=== PATIENT | male | born 1975 | race Caucasian/White ===

== ENCOUNTER 2024-01-08 08:49 | Emergency (ER) | payer OTHER, SELFPAY ==
[2024-01-08 08:58] VITALS: BP 117/78
[2024-01-08] MEDS: TORADOL 15 MG IV (09:47)
[2024-01-08] MEDS: OMNIPAQUE 50 ML PO (09:51)
[2024-01-08 09:52] LABS: Urine Albumin Negative (Neg - Trace); Urine Bilirubin Negative (Negative); Urine Character Clear (Clear); Urine Color Yellow; Urine Glucose Negative (Negative); Urine Ketone Negative (Negative); Urine Leukocyte Negative (Negative); Urine Nitrite Negative (Negative); Urine Occult Blood Negative (Negative); Urine Specific Gravity 1.015 (<1.030); Urine Urobilinogen Negative (Neg - 1+)
[2024-01-08 10:02] LABS: % Basophils 0.5 % (0-2); % Eosinophils 1.3 % (0-6); % Immature Granulocytes 0.4 % (0-0.5); % Lymphocytes 17.2 % (20.5-51.1); % Monocytes 5.3 % (1.7-9.3); % Neutrophils 75.3 % (42.2-75.2); Absolute Eosinophils 0.1 10^3/uL (0-0.7); Absolute Lymphocytes 1.5 10^3/uL (1.2-3.4); Absolute Monocytes 0.5 10^3/uL (0.1-0.6); Absolute Neutrophils 6.4 10^3/uL (1.4-6.5); Hematocrit 48.5 % (39.0-52.0); Hemoglobin 17.1 g/dL (13.0-18.0); Mean Corp Hgb Conc. 35.3 g/dL (33.0-37.0); Mean Corpuscular Hgb 30.9 pg (27.0-31.0); Mean Corpuscular Volume 87.5 fL (80.0-94.0); Mean Platelet Volume 9.7 fL (7.4-10.4); Nucleated Red Blood Cells % 0 % (-); Platelet Count 313 10^3/uL (130-400); Red Blood Cell Count 5.54 10^6/uL (4.70-6.10); Red Cell Dist. Width 12.2 % (11.5-14.5); White Blood Cell Count 8.4 10^3/uL (4.8-10.8)
[2024-01-08 10:11] LABS: Blood Urea Nitrogen 18 mg/dl (9-20); Calcium 9.9 mg/dl (8.4-10.2); Carbon Dioxide 29 mmol/L (22-30); Chloride 100 mmol/L (98-107); Glucose 97 mg/dl (70-99); Potassium 4.8 mmol/L (3.5-5.1); Sodium 139 mmol/L (135-145); eGFR > 60.00
[2024-01-08] MEDS: DILAUDID 0.5 MG IV (10:41)
[2024-01-08 10:44] VITALS: BP 144/75
--- NOTE | 2024-01-08 12:55 | ED.GENMED ---
History of Present Illness
General
Chief Complaint: Abdominal Pain
Source: patient
Time Seen by Provider: 01/08/24 09:07
History of Present Illness
History of Present Illness:
48-year-old male presents to the emergency room complaining of pain in his left groin. Pain began yesterday. Patient notes that he was on a extensive hiking trip about a week ago. He did not have any pain at that time and did not have pain upon
returning. No vomiting. Patient feels little nauseous. He denies any numbness or tingling.
Phy Exam
Physical Exam
Physical Exam:
General: Awake, Alert, Oriented X3. No acute distress.
Vitals: unremarkable
Head: Atraumatic
Eyes: Pupils equal, EOMI
Throat: Airway intact, no exudates
Neck: Trachea midline
Lungs: Clear and equal b/l
Heart: Regular rate, no murmurs
Abd: Soft, Nontender, No pulsatile mass, no inguinal hernia
Neuro: No focal weakness
Skin: Warm, dry, no rash
Extremities: pulses equal b/l, no edema
Course
Orders/Labs/Results
Orders:
Orders
01/08/24 09:38
Iohexol [Omnipaque] See Protocol PO NOW STA
01/08/24 09:39
CT Abd/pel W Iv And Oral Contr Urgent
Comment:
Reason For Exam: left inguinal/lower abd pain
Ketorolac [Toradol] 15 mg IV NOW STA
01/08/24 09:44
Basic Metabolic Panel Urgent
Complete Blood Count/With Diff Urgent
Urinalysis Reflex To Culture Urgent
Date Specimen was Collected: 01/08/24
Time Specimen was Collected: 09:42
01/08/24 10:37
HYDROmorphone [Dilaudid] 0.5 mg IV NOW STA
Abnormal Lab Results
01/08/24
09:44
Neutrophils % 75.3 H %
(42.2-75.2)
Lymphocytes % 17.2 L %
(20.5-51.1)
01/08/24 09:44
01/08/24 09:44
Vital Signs
Initial and Last Documented VS:
Initial Vital Signs
Temp Pulse Resp BP Pulse Ox
98.1 F 70 16 117/78 97
01/08/24 08:58 01/08/24 08:58 01/08/24 08:58 01/08/24 08:58 01/08/24 08:58
Last Documented Vital Signs
Temp Pulse Resp BP Pulse Ox
98.7 F 59 18 138/79 97
01/08/24 13:00 01/08/24 13:00 01/08/24 13:00 01/08/24 13:00 01/08/24 13:00
MDM/Problems Addressed
Differential Diagnosis Includes:
Inguinal hernia, groin muscle strain, diverticulitis
MDM/Problems Addressed:
Patient has significant pain in his right groin. Physical exam does not show any evidence of a hernia. Patient is tender in the inguinal/groin area. CT of the abdomen pelvis was performed which showed no evidence of a hernia or other acute
inflammatory process. Bladder wall read as being thickened by radiology however the patient has a normal urinalysis. I do not believe this is any clinical consequence. We will treat with NSAIDs have the patient follow-up with Ortho
*Radiology
Radiology exam reviewed: radiology read reviewed
*Pulse Oximetry
Patient hypoxic: no
*Critical Care Note
Total Time (30-74mins, 75-104mins- exclusive of procedures): Not Applicable
ED Attending Note
-
Portions of this chart may have been created with voice recognition software.� Occasional wrong word or��sound alike� substitutions may have occurred due to the inherent limitations of voice recognition software.
Discharge Plan
Departure
Patient Disposition: Home (Routine Discharge)
Date of Disposition: 01/08/24
Time of Disposition: 12:56
Patient with high blood pressure during this ER visit?: Yes
Condition: Good
Discharge Problem:
Groin strain
Instructions: Groin Strain ED
Prescriptions:
New
ibuprofen 600 mg tablet
600 mg PO QID PRN (Reason: Pain) Qty: 30 0RF
Referrals:
Nael Rangel MD [Active] -
UNKNOWN - PT DOES,NOT KNOW [Family Provider] -
Stand Alone Forms: Return to Work
Interventions
Interventions:
*Risk Screen - Suicide Last Done: 01/08/24 08:58
*Neglect/Abuse Screening Last Done: 01/08/24 08:58
ED- Fall Risk Assessment Last Done: 01/08/24 10:26
*ED COVID-19 Vaccine History Last Done: 01/08/24 08:58
*Nursing Disposition Last Done: 01/08/24 13:00
[facility]-Perfeh-Qzmhzolqgf Assessment Last Done: 01/08/24 10:26
Discharge Date and Time
Discharge Date/Time: 01/08/24 13:06
Print Language: JAPANESE
[2024-01-08 13:00] VITALS: BP 138/79
== END 2024-01-08 13:06 | disposition home or self-care (01) ==
LOC: EMR 08:49
PROVIDERS: EMERGENCY PHYSICIAN Emergency Medicine
DX: S39.011A Strain of muscle, fascia and tendon of abdomen, initial encounter (principal); X58.XXXA Exposure to other specified factors, initial encounter
CPT/HCPCS: 99284; 96374; 96375; 74177; 80048; 81003; 85025; Q9967